=== PATIENT | female | born 1970 | race African-American/Black ===

== ENCOUNTER 2017-11-19 18:24 | Emergency (ER) | payer OTHER ==
[~2017-11-19] VITALS: Ht 160 cm; Wt 99.8 kg
[~2017-11-19 18:24] MED LIST: ADULT LOW DOSE81 MG PO; FLAGYL500 MG PO; HYDROCODONE-AP1 EAC6 PO; IBUPROFEN 800800 MG PO; NOHOMEMEDICATIONS; NORCO 5-325 TA1 EACH PO; SIMVASTATIN20 MG PO; VESICARE 5 MG TA5 M1 PO; ZOFRAN ODT4 MG PO
[2017-11-19] MEDS ORDERED: OXYBUTYNIN 5 MG5 M1 PO (18:32)
[2017-11-19] MEDS ORDERED: LIPITOR 20 MG T20 M1 PO (18:33)
[2017-11-19 19:22] LABS: ABSOLUTE BASOPHILS 0.1 thou/uL (0.0-0.2); ABSOLUTE EOSINOPHILS 0.2 thou/uL (0.0-0.7); ABSOLUTE LYMPHOCYTES 3.2 thou/uL (0.8-5.3); ABSOLUTE MONOCYTES 0.6 thou/uL (0.0-1.2); ABSOLUTE NEUTROPHILS 7.1 thou/uL (1.6-8.1); BASOPHILS 0.9 %; EOSINOPHILS 1.5 %; HEMATOCRIT 38.2 % (37.0-47.0); HEMOGLOBIN 13.1 gm/dL (12.0-15.0); LYMPHOCYTES 29.1 %; MCH 28.6 pg (26.0-34.0); MCHC 34.4 g/dL (28.0-37.0); MCV 83.2 fL (80.0-100.0); MONOCYTES 5.2 %; MPV 8.2 fl. (7.2-11.1); NUCLEATED RBCS 0 /100WBC; PLATELET COUNT* 335 thou/uL (150-400); POLYS 63.3 %; RBC 4.59 mil/uL (4.20-5.00); RDW-CV 14.2 % (10.5-14.5); WBC 11.1 thou/uL (4.0-11.0)
[2017-11-19 19:30] LABS: CALCIUM 9.4 mg/dL (8.5-10.1); CREATININE 0.7 mg/dL (0.6-1.3); POTASSIUM 3.8 mmol/L (3.5-5.1)
[2017-11-19 19:39] LABS: ALBUMIN 3.6 g/dL (3.4-5.0); TOTAL BILIRUBIN 0.9 mg/dL (<0.1-1.0); TOTAL PROTEIN 7.7 g/dL (6.4-8.2)
[2017-11-19] MEDS ORDERED: METFORMIN HCL500 MG PO (19:52)
[2017-11-19 20:35] LABS: URINE BILIRUBIN NEGATIVE (Negative); URINE BLOOD NEGATIVE (Negative); URINE CLARITY CLEAR; URINE COLOR YELLOW; URINE GLUCOSE-RANDOM NEGATIVE (Negative); URINE KETONES NEGATIVE (Negative); URINE LEUKOCYTES-REFLEX NEGATIVE (Negative); URINE NITRITE-REFLEX NEGATIVE (Negative); URINE PROTEIN TRACE (Negative); URINE SPECIFIC GRAVITY 1.015 (1.005-1.030); URINE UROBILINOGEN 0.2 E.U./dl (0.2-1.0)
[2017-11-19] MEDS ORDERED: OMEPRAZOLE 20 M20 M1 PO (20:53)
[2017-11-19 21:50] VITALS: BP 148/79
--- NOTE | 2017-11-20 12:02 | EKG ---
[place] [address] ELECTROCARDIOGRAM REPORT Name: TY DANIEL Room: [facility]#: [id number] Admission: 11/19/17 Attend Phys: Discharge: 11/19/17 Date of : 66 Report #: [id number] THIS REPORT FOR: //name// [facility] ED Test Date: 2017-11-19 Test Time: 19:20:28 Pat Name: TY DANIEL Department: Room: Gender: F Nurse Practitioner Hospitalist: KEELEY Esparza : 1970 Requested By: Juany Hubbard Order Number: [id number] MD: Giacomo Flaherty Measurements Intervals [place] Rate: 85 P: 66 UT: 148 QRS: 48 QRSD: 72 T: 22 QT: 342 QTc: 407 Interpretive Statements Sinus rhythm Borderline T wave abnormalities Baseline wander in lead(s) II,III,aVL,aVF Compared to ECG 04/26/2015 09:24:11 No significant changes Electronically Signed On 11-20-2017 12:02:13 STATISTICAL MACHINE MECHANIC by Giacomo Flaherty [email or web address] <ELECTRONICALLY SIGNED> By: Giacomo Flaherty MD, [facility] 11/20/17 1202 19 19 Giacomo Flaherty MD, [facility] /EPI
== END 2017-11-19 21:50 | disposition home or self-care (01) ==
LOC: M.ERS 18:24
PROVIDERS: Nurse Practitioner Family
DX: R10.13 Epigastric pain (principal); K21.9 Gastro-esophageal reflux disease without esophagitis; Z90.710 Acquired absence of both cervix and uterus; Z87.442 Personal history of urinary calculi; Z88.5 Allergy status to narcotic agent

== ENCOUNTER 2018-12-03 08:05 | Emergency (ER) | payer OTHER ==
[~2018-12-03] VITALS: Ht 160 cm; Wt 103.9 kg
[~2018-12-03 08:05] MED LIST changes: +LIPITOR 20 MG T20 M1 PO; +METFORMIN HCL500 MG PO; +OMEPRAZOLE 20 M20 M1 PO; +OXYBUTYNIN 5 MG5 M1 PO
[2018-12-03] MEDS ORDERED: ROSUVASTATIN CA20 MG PO (08:13)
[2018-12-03] MEDS ORDERED: ONDANSETRON HCL4 M2 PO (08:13)
[2018-12-03] MEDS ORDERED: COZAAR 25 MG TA25 M1 PO (08:13)
[2018-12-03 08:27] LABS: ABSOLUTE BASOPHILS 0.1 thou/uL (0.0-0.2); ABSOLUTE EOSINOPHILS 0.1 thou/uL (0.0-0.7); ABSOLUTE LYMPHOCYTES 2.4 thou/uL (0.8-5.3); ABSOLUTE MONOCYTES 0.7 thou/uL (0.0-1.2); ABSOLUTE NEUTROPHILS 5.2 thou/uL (1.6-8.1); BASOPHILS 1.1 %; EOSINOPHILS 1.4 %; HEMATOCRIT 36.3 % (37.0-47.0); HEMOGLOBIN 12.7 gm/dL (12.0-15.0); LYMPHOCYTES 28.6 %; MCH 28.8 pg (26.0-34.0); MCHC 35.1 g/dL (28.0-37.0); MCV 82.2 fL (80.0-100.0); MONOCYTES 8.1 %; MPV 8.5 fl. (7.2-11.1); NUCLEATED RBCS 0 /100WBC; PLATELET COUNT* 330 thou/uL (150-400); POLYS 60.8 %; RBC 4.41 mil/uL (4.20-5.00); RDW-CV 13.7 % (10.5-14.5); WBC 8.5 thou/uL (4.0-11.0)
[2018-12-03 08:40] LABS: APTT 25.1 Seconds (25.0-31.3); PROTIME 9.9 Seconds (9.20-11.50)
[2018-12-03 08:44] LABS: ANION GAP 7 mmol/L (7-16); BUN 12 mg/dL (7-18); CALCIUM 8.9 mg/dL (8.5-10.1); CHLORIDE 105 mmol/L (98-107); CO2 27 mmol/L (21-32); CREATININE 0.9 mg/dL (0.6-1.3); GLUCOSE 135 mg/dL (70-99); SODIUM 139 mmol/L (136-145); TROPONIN-I LEVEL <0.06 ng/mL (<0.06)
[2018-12-03 08:50] LABS: ALBUMIN 3.6 g/dL (3.4-5.0); ALKALINE PHOSPHATASE 84 U/L (46-116); CK-MB MASS < 0.5 ng/mL (<0.5-3.6); LIPASE 223 U/L (73-393); MAGNESIUM 1.6 mg/dL (1.8-2.4); NT-PRO BRAIN NAT PEPTIDE 20 pg/mL (<300); SGOT 19 U/L (15-37); SGPT 41 U/L (30-65); TOTAL PROTEIN 7.4 g/dL (6.4-8.2)
[2018-12-03 09:08] VITALS: BP 141/76
--- NOTE | 2018-12-03 16:07 | EKG ---
[place] [address] ELECTROCARDIOGRAM REPORT Name: TY DANIEL Room: [facility]#: [id number] Admission: 12/03/18 Attend Phys: Discharge: 12/03/18 Date of : [birth year] Report #: [id number] THIS REPORT FOR: //name// [facility] ED Test Date: 2018-12-03 Test Time: 08:10:44 Pat Name: TY DANIEL Department: Room: Gender: F Director [employer]: : 1970 Requested By: Fuentes Scott Order Number: [id number] : Carlos Barrera Measurements Intervals [place] Rate: 91 P: 58 TX: 151 QRS: 17 QRSD: 70 T: 6 QT: 331 QTc: 408 Interpretive Statements Sinus rhythm Compared to ECG 11/19/2017 19:20:28 T-wave abnormality no longer present Electronically Signed On 12-03-2018 16:07:21 HEEL COMPRESSOR by Carlos Barrera [email or web address] <ELECTRONICALLY SIGNED> By: Carlos Barrera MD, [facility] 12/03/18 1607 0810 0810 Carlos Barrera MD, FACC /EPI
== END 2018-12-03 09:08 | disposition home or self-care (01) ==
LOC: M.ERS 08:05
PROVIDERS: Family Medicine
DX: R07.89 Other chest pain (principal); R11.2 Nausea with vomiting, unspecified; K21.9 Gastro-esophageal reflux disease without esophagitis; E11.9 Type 2 diabetes mellitus without complications; E78.5 Hyperlipidemia, unspecified; I10 Essential (primary) hypertension; Z88.6 Allergy status to analgesic agent; Z90.710 Acquired absence of both cervix and uterus; Z87.442 Personal history of urinary calculi

== ENCOUNTER 2019-12-12 13:35 | Inpatient (IN) | payer OTHER ==
[~2019-12-12] VITALS: Ht 160 cm; Wt 87.5 kg
[~2019-12-12 13:35] MED LIST changes: +COZAAR 25 MG TA25 M1 PO; +ONDANSETRON HCL4 M2 PO; +ROSUVASTATIN CA20 MG PO
[2019-12-12 13:54] VITALS: BP 134/74
[2019-12-12 14:30] LABS: URINE BILIRUBIN 1+ (Negative); URINE BLOOD TRACE (Negative); URINE CLARITY SL CLOUDY; URINE COLOR YELLOW; URINE GLUCOSE-RANDOM NEGATIVE (Negative); URINE KETONES 3+ (Negative); URINE LEUKOCYTES-REFLEX NEGATIVE (Negative); URINE NITRITE-REFLEX NEGATIVE (Negative); URINE PROTEIN TRACE (Negative); URINE SPECIFIC GRAVITY >= 1.030 (1.005-1.030); URINE UROBILINOGEN 0.2 E.U./dl (0.2-1.0)
[2019-12-12 14:36] LABS: SQUAMOUS 0-3 Few /LPF (0-3); URINE WBC-REFLEX 0-5 Rare /HPF (0-5)
[2019-12-12 14:37] LABS: BACTERIA-REFLEX 1-9 Few /HPF (None Seen); CALCIUM OXALATE >10 Many /LPF (None Seen); CASTS None Seen /LPF (None Seen); URINE RBC 0-2 Rare /HPF (0-2)
[2019-12-12 14:47] LABS: ABSOLUTE LYMPHOCYTES 1.3 thou/uL (0.8-5.3); ABSOLUTE MONOCYTES 0.6 thou/uL (0.0-1.2); ABSOLUTE NEUTROPHILS 6.3 thou/uL (1.6-8.1); BASOPHILS 0.4 %; EOSINOPHILS 0.1 %; HEMATOCRIT 31.2 % (37.0-47.0); HEMOGLOBIN 10.7 gm/dL (12.0-15.0); LYMPHOCYTES 15.7 %; MCH 27.2 pg (26.0-34.0); MCHC 34.2 g/dL (28.0-37.0); MCV 79.5 fL (80.0-100.0); MONOCYTES 7.6 %; NUCLEATED RBCS 0 /100WBC; PLATELET COUNT* 380 thou/uL (150-400); POLYS 76.2 %; RBC 3.93 mil/uL (4.20-5.00); RDW-CV 15.5 % (10.5-14.5); WBC 8.3 thou/uL (4.0-11.0)
[2019-12-12 14:59] LABS: CALCIUM 8.4 mg/dL (8.5-10.1); CREATININE 0.9 mg/dL (0.6-1.3); POTASSIUM 3.2 mmol/L (3.5-5.1)
[2019-12-12 15:03] LABS: ALBUMIN 3.3 g/dL (3.4-5.0); TOTAL BILIRUBIN 1.2 mg/dL (<0.1-1.0)
[2019-12-12 17:31] VITALS: BP 131/75
[2019-12-12 17:50] VITALS: BP 125/70
--- NOTE | 2019-12-12 18:54 | NUR ---
PATIENT ARRIVED TP UNIT AT APPROX 1735. ALERT AND ORIENTED X4. ADMISSION HISTORY AND ASSESSMENT COMPLETED AND CHARTED. VSS ON ROOM AIR. NO COMPLAINTS OF PAIN OR NAUSEA. FLUIDS STARTED AND INFUSING ORDERED. PATIENT UP AD MARCELLA. CALL LIGHT IN REACH. HOURLY ROUNDS. WILL CONTINUE WITH PLAN OF CARE.
[2019-12-12 20:50] VITALS: BP 137/88
--- NOTE | 2019-12-13 05:29 | NUR ---
PATIENT SLEPT THROUGH THE NIGHT. NO REPORTS OF ANY NAUSEA OR PAIN, SHE HAS BEEN NPO SINCE MIDNIGHT. FLUIDS RUNNING ALL NIGHT NS @ 100. URINE STRAINED. PLAN IS FOR UROLOGY TO DECIDE ON POSSIBLE STENT PLACEMENT OR D/C TO HOME. WILL CONINUE TO FOLLOW PLAN OF CARE.
[2019-12-13 10:15] VITALS: BP 118/72
[2019-12-13] MEDS ORDERED: FLOMAX0.4 MG PO (15:14)
[2019-12-13] MEDS ORDERED: NORCO 5-325 TA1 EAC1 PO (15:16)
[2019-12-13 15:18] VITALS: BP 118/72
[2019-12-13 15:35] VITALS: BP 118/72
--- NOTE | 2019-12-13 15:35 | NUR ---
PATIENT PLEASANT AND COOPERATIVE W/ ASSESS AND CARES. DISCHARGE INSTRUCTIONS REVIEWED. PATIENT STATES VERBALLY OF UNDERSTANDING. STATES THAT SHE IS FOLLOWING UP [facility]. SUPPLIES FOR COLLECTING AND STRAINING URINE AT HOME GIVEN TO PATIENT. PATIENT ALERT AND ORIENTED, DENIES PAIN/N/V. COPY OF INSTRUCTIONS AND ORIG SCRIPT FOR [place] GIVEN TO PATIENT. IV DISCONTINUED. PATIENT ESCORTED OFF UNIT PER PEDIS W/ BOTTOM BRUSHER PRESENT, STEADY GAIT. DENIES OTHER NURSING NEEDS. ~TJRN
== END 2019-12-13 15:35 | disposition home or self-care (01) | DRG 694 ==
LOC: M.ERS 13:35 → M.TBA-ER 16:00 → M.ORTHSURG 17:34
PROVIDERS: Family Medicine; ADMIT Family Medicine
DX: N13.2 Hydronephrosis with renal and ureteral calculous obstruction (principal); E87.6 Hypokalemia; I10 Essential (primary) hypertension; E78.5 Hyperlipidemia, unspecified; E66.01 Morbid (severe) obesity due to excess calories; K21.9 Gastro-esophageal reflux disease without esophagitis; Z68.34 Body mass index [BMI] 34.0-34.9, adult; Z79.899 Other long term (current) drug therapy; Z79.84 Long term (current) use of oral hypoglycemic drugs; Z98.84 Bariatric surgery status; Z88.5 Allergy status to narcotic agent; Z90.710 Acquired absence of both cervix and uterus; Z82.49 Family history of ischemic heart disease and other diseases of the circulatory system

== ENCOUNTER 2019-12-16 02:21 | Emergency (ER) | payer OTHER ==
[~2019-12-16] VITALS: Ht 160 cm; Wt 87.5 kg
[~2019-12-16 02:21] MED LIST changes: +FLOMAX0.4 MG PO; +NORCO 5-325 TA1 EAC1 PO
[2019-12-16 02:37] LABS: URINE BLOOD TRACE (Negative); URINE CLARITY CLEAR; URINE COLOR YELLOW; URINE GLUCOSE-RANDOM NEGATIVE (Negative); URINE KETONES 2+ (Negative); URINE LEUKOCYTES-REFLEX NEGATIVE (Negative); URINE NITRITE-REFLEX NEGATIVE (Negative); URINE PROTEIN 1+ (Negative); URINE SPECIFIC GRAVITY >= 1.030 (1.005-1.030); URINE UROBILINOGEN 0.2 E.U./dl (0.2-1.0)
[2019-12-16 02:46] LABS: ABSOLUTE BASOPHILS 0.1 thou/uL (0.0-0.2); ABSOLUTE EOSINOPHILS 0.1 thou/uL (0.0-0.7); ABSOLUTE LYMPHOCYTES 2.2 thou/uL (0.8-5.3); ABSOLUTE MONOCYTES 0.6 thou/uL (0.0-1.2); ABSOLUTE NEUTROPHILS 3.3 thou/uL (1.6-8.1); EOSINOPHILS 1.5 %; HEMATOCRIT 32.2 % (37.0-47.0); HEMOGLOBIN 11.1 gm/dL (12.0-15.0); LYMPHOCYTES 35.1 %; MCHC 34.5 g/dL (28.0-37.0); MCV 78.1 fL (80.0-100.0); MONOCYTES 9.2 %; MPV 8.3 fl. (7.2-11.1); NUCLEATED RBCS 0 /100WBC; PLATELET COUNT* 409 thou/uL (150-400); POLYS 53.2 %; RBC 4.12 mil/uL (4.20-5.00); RDW-CV 15.9 % (10.5-14.5); WBC 6.3 thou/uL (4.0-11.0)
[2019-12-16 02:47] LABS: URINE BILIRUBIN 1+ (Negative)
[2019-12-16 02:49] LABS: ICTOTEST (BILI CONFIRMATORY) Negative (Negative)
[2019-12-16 02:58] LABS: CREATININE 0.9 mg/dL (0.6-1.3); POTASSIUM 3.3 mmol/L (3.5-5.1)
[2019-12-16] MEDS ORDERED: OXYCODONE HCL 55 MG PO (04:22)
[2019-12-16 04:31] VITALS: BP 145/88
== END 2019-12-16 04:31 | disposition home or self-care (01) ==
LOC: M.ERS 02:21
PROVIDERS: Emergency Medicine
DX: N23 Unspecified renal colic (principal); R11.2 Nausea with vomiting, unspecified; K21.9 Gastro-esophageal reflux disease without esophagitis; E78.5 Hyperlipidemia, unspecified; Z90.710 Acquired absence of both cervix and uterus; Z87.442 Personal history of urinary calculi

== ENCOUNTER 2020-07-21 18:59 | Observation (INO) | payer OTHER ==
[~2020-07-21] VITALS: Ht 160 cm; Wt 67.1 kg
[~2020-07-21 18:59] MED LIST changes: +OXYCODONE HCL 55 MG PO
[2020-07-21 19:10] VITALS: BP 165/95
[2020-07-21] MEDS ORDERED: VITAMIN PATCH (19:25)
[2020-07-21 19:38] LABS: URINE BILIRUBIN NEGATIVE (Negative); URINE BLOOD NEGATIVE (Negative); URINE CLARITY CLEAR; URINE COLOR YELLOW; URINE GLUCOSE-RANDOM NEGATIVE (Negative); URINE LEUKOCYTES-REFLEX NEGATIVE (Negative); URINE NITRITE-REFLEX NEGATIVE (Negative); URINE PROTEIN NEGATIVE (Negative); URINE SPECIFIC GRAVITY 1.025 (1.005-1.030)
[2020-07-21 19:38] LABS: ABSOLUTE EOSINOPHILS 0.1 thou/uL (0.0-0.7); ABSOLUTE LYMPHOCYTES 1.2 thou/uL (0.8-5.3); ABSOLUTE MONOCYTES 0.8 thou/uL (0.0-1.2); ABSOLUTE NEUTROPHILS 8.6 thou/uL (1.6-8.1); BASOPHILS 0.4 %; EOSINOPHILS 0.5 %; HEMATOCRIT 33.9 % (37.0-47.0); HEMOGLOBIN 11.6 gm/dL (12.0-15.0); LYMPHOCYTES 11.4 %; MCH 27.8 pg (26.0-34.0); MCHC 34.4 g/dL (28.0-37.0); MCV 80.8 fL (80.0-100.0); MONOCYTES 7.5 %; MPV 7.9 fl. (7.2-11.1); NUCLEATED RBCS 0 /100WBC; PLATELET COUNT* 308 thou/uL (150-400); POLYS 80.2 %; RBC 4.19 mil/uL (4.20-5.00); RDW-CV 15.3 % (10.5-14.5); WBC 10.7 thou/uL (4.0-11.0)
[2020-07-21 19:40] LABS: URINE KETONES 3+ (Negative)
[2020-07-21 19:48] LABS: CALCIUM 8.8 mg/dL (8.5-10.1); CREATININE 0.7 mg/dL (0.6-1.3); POTASSIUM 3.3 mmol/L (3.5-5.1)
[2020-07-21 19:53] LABS: ALBUMIN 3.5 g/dL (3.4-5.0); TOTAL BILIRUBIN 1.8 mg/dL (<0.1-1.0); TOTAL PROTEIN 7.2 g/dL (6.4-8.2)
[2020-07-21 23:19] VITALS: BP 161/92
[2020-07-21 23:45] VITALS: BP 169/100
[2020-07-22 02:11] VITALS: BP 169/100
--- NOTE | 2020-07-22 04:28 | NUR ---
PT ARRIVED TO THE UNIT AT 2325. A&O X 4, ON RA. MEDS GIVEN ORDERED. PAIN MANAGED WITH FENTANYL. UP INDEPENDENTLY IN ROOM. IVF INFUISING. NPO FOR SURGERY THIS MORNING. WILL CONTINUE TO MONITOR.
[2020-07-22 08:00] VITALS: BP 145/93
[2020-07-22 11:12] VITALS: BP 145/93
--- NOTE | 2020-07-22 14:36 | NUR ---
PATIENT DISCHARGED FROM UNIT AT 1430. ALERT AND ORIENTED X 4. VITAL SIGNS STABLE ON ROOM AIR. UP INDEPENDENTLY IN ROOM. TOLERATING REGULAR DIET. VOIDING WITH NO ISSUES POST SURGERY. LAP SITES TO ABDOMEN CLEAN/DRY/INTACT. DENIES PAIN AND NAUSEA AT THIS TIME. DISCHARGE INSTRUCTIONS, MEDICATION INFORMATION, AND SCRIPT GIVEN TO PATIENT. LEFT WITH ALL BELONGINGS. PATIENT LEFT WITH DAUGHTER VIA CAR.
[2020-07-22 14:50] VITALS: BP 145/93
--- NOTE | 2020-07-22 15:11 | EKG ---
[place] [address] ELECTROCARDIOGRAM REPORT Name: TY DANIEL Room: [address]#: [id number] Admission: 07/21/20 Attend Phys: Jade Levy, Discharge: 07/22/20 Date of : 66 Date of Service: 07/21/201939 Report #: [id number] THIS REPORT FOR: //name// [facility] ED Test Date: 2020-07-21 Test Time: 19:40:04 Pat Name: TY DANIEL Department: Room: [facility] Gender: F Product Technician: CT : 1970 Requested By: Fuentes Scott Order Number: [id number] MD: Carlos Barrera Measurements Intervals [place] Rate: 86 P: 58 VT: 152 QRS: 14 QRSD: 84 T: 20 QT: 347 QTc: 415 Interpretive Statements Sinus rhythm Borderline T wave abnormalities Baseline wander in lead(s) V5 Compared to ECG 12/03/2018 08:10:44 T-wave abnormality now present Electronically Signed On 07-22-2020 15:11:10 CDT by [email or web address] Barrera [email or web address] <ELECTRONICALLY SIGNED> By: Carlos Barrera MD, FACC 07/22/20 151 39 39 Carlos Barrera MD, FAC /EPI
--- NOTE | 2020-07-25 18:06 | PATH ---
[address] [address] PATHOLOGY RPT PROCEDURE Name: TY DANIEL Room: [address] Char Delgadillo#: [id number] Admission: 07/21/20 Date of : [birth year] Discharge: 07/22/20 Report #: [id number] Path Case #: [id number] [facility] Accession Number: [id number] . 01 Material submitted: . appendix - APPENDIX . 01 Clinician provided ICD-10: K35.30 . 01 Clinical history: . APPENDICITIS . 02 Diagnosis: Appendix: - Acute appendicitis, periappendicitis and serositis. ([facility]; 07/25/2020) [facility] 07/25/2020 1543 Local . 02 Electronically signed: . Jordan Arreola MD, Pathologist NPI- [id number] . 01 Gross description: . Received in formalin labeled "Daniel, Ty, appendix" is an appendectomy specimen measuring 5.7 cm in length and 1.3 cm in diameter. There is an attached portion of mesoappendix measuring 2.0 x 0.6 x 0.6 cm. The proximal margin is closed with a staple line. The serosa is billingsley-white with extensive purulent exudate. The specimen is sectioned to reveal a dilated hemorrhagic lumen measuring up to 0.7 cm in diameter. No perforations are identified. The lumen contains a compacted hemorrhagic fecal material. Hot [place] Worker sections are submitted in cassette A1, with the proximal margin inked black. ([facility] [place]; 07/24/2020) [facility] 07/24/2020 0922 Local . 02 Pathologist provided ICD-10: K35.80, K65.8 . 02 CPT . 084260 Specimen Comment: A courtesy copy of this report has been sent to [phone] Specimen Comment: [phone] Specimen Comment: Report sent to / DR LOPEZ Performed at: [address], [place] [id number] MD Kirk Samuels MD Phone: [phone] [place] [address] PATHOLOGY RPT PROCEDURE Name: TY DANIEL Room: [address] Char Delgadillo#: [id number] Admission: 07/21/20 Date of : [birth year] Discharge: 07/22/20 Report #: [id number] Path Case #: [id number] Performed at: 02 [facility] Slick Lemons [address] Lencho Donnelly, TIMOTHY Botello [id number] MD Jordan Arreola MD Phone: [phone]
--- NOTE | 2020-07-27 09:03 | OP ---
[address] [address] OPERATIVE REPORT Name: TY DANIEL Room: [address] Char Delgadillo#: [id number] Admission: 07/21/20 Attend Phys: Jade Levy DO Discharge: 07/22/20 Date of : [birth year] Report #: [id number] THIS REPORT FOR: //name// cc: Marcella Tadeo Tara DO ~ CC: Jade Tadeo DATE OF SERVICE: 07/22/2020 PREPROCEDURE DIAGNOSIS: Acute appendicitis with localized peritonitis. POSTOPERATIVE DIAGNOSIS: Acute appendicitis with localized peritonitis. FINDINGS: An acutely inflamed appendix, which was retrocecal in location and in the right upper quadrant. SURGEON: Jade Levy DO CO-SURGEON: Ming Lora DO, PGY-1. GATE KEEPER: CALIN Jin. OPERATION PERFORMED: Laparoscopic appendectomy. ANESTHESIA: General endotracheal and local. ESTIMATED BLOOD LOSS: 3. DRAINS: None. SPECIMENS: Appendix. COMPLICATIONS: None. CONDITION: Stable. DISPOSITION: PACU to the floor. HISTORY OF PRESENT ILLNESS: The patient is a very pleasant 49-year-old female who presented to the ER last night with complaint of acute onset right lower quadrant abdominal pain. Lab work was all within normal limits. CT scan did reveal acute retrocecal appendicitis. The patient was then consented for laparoscopic appendectomy. Risks discussed included bleeding, infection, pain, scar formation, injury to bowel or bladder, hernia at the incision sites, need for an open procedure and risks of general anesthesia. [place] [address] OPERATIVE REPORT Name: DANIELTY Sherman Room: [address] Char Delgadillo#: [id number] Admission: 07/21/20 Attend Phys: Jade Levy DO Discharge: 07/22/20 Date of : 66 Report #: [id number] these risks and elected to proceed. DESCRIPTION OF PROCEDURE: The patient was brought to the operating room. She was laid supine on the operating room table. SCDs were placed on bilateral lower extremities. Ancef was given in the perioperative period. General endotracheal anesthesia was induced by Anesthesia without difficulty. Abdomen was prepped and draped in standard sterile fashion. Timeout was performed to verify patient and procedure. A 10 mL of 0.5% Marcaine were injected in the infraumbilical area. Curvilinear infraumbilical incision was made with an 11-blade. Cautery was used for hemostasis. S retractors were used to visualize fascia. Fascia was grasped and elevated between 2 Kochers. Fascia was incised using cautery. Peritoneum was bluntly entered using a Nikki clamp. Finger was introduced into the abdomen to assure that there were no payton-incisional adhesions, none were identified. Two stitches of 0 Vicryl placed on the fascia. Parveen trocar was introduced and secured with 0 Vicryl stitches. Abdomen was insufflated. The patient was placed head down and tilted left side down. Camera was introduced and a brief anterior abdominal exploration was undertaken with no significant findings. Of note, the patient did not have any intraabdominal adhesions from her recent gastric bypass surgery. Two 5 mm trocars were then introduced. One in the left lower quadrant, one in the suprapubic area, both under direct visualization. We then turned our attention to the right side of the abdomen. The cecum was identified almost all the way up into the right upper quadrant. The appendix was then identified in a retrocecal position. It was acutely inflamed and there was some purulent fluid along the right gutter. The cecum was rolled to the midline. Cautery was then used to incise the peritoneum overlying the appendix. Appendix was then able to be elevated to the anterior abdominal wall and the base was clearly visualized. [place] dissector was used to create a window at the base of the appendix. A 45 mm purple load Endo-FAM stapler was introduced and the base of the appendix was clamped and stapled without difficulty. Mesentery was then also taken using a single load of a 45 mm purple load Endo-FAM stapler. Specimen was placed within an EndoCatch bag. Staple lines were inspected. There was one small area of bleeding, which was easily controlled with cautery. Any of the remaining purulent fluid was then suctioned away from the right side of the abdomen and the pelvis. Attention was returned to the staple lines and they appeared to be hemostatic. The patient was then returned to supine. Any remaining fluid in the pelvis was suctioned away. Trocars were removed under direct visualization. There was no bleeding noted from the peritoneum. Abdomen was then completely desufflated. Parveen trocar was removed and EndoCatch bag was removed with specimen intact. It was handed off for permanent pathology. Kochers were placed on the fascia of the infraumbilical port. Previously placed 0 Vicryl stitches were removed and a 0 Vicryl stitch was placed in maqzjf-bp-ayhas fashion with excellent approximation of the fascia. An additional 10 mL of 0.5% Marcaine were injected fascia. All wounds were then closed with 4-0 Monocryl. A total of 30 mL of 0.5% Marcaine were used to anesthetize the wounds. Wounds were cleansed and covered with Mastisol, Steri-Strips, 4 x 4's, and [place] [address] OPERATIVE REPORT Name: TY DANIEL Room: [address] Char Delgadillo#: [id number] Admission: 07/21/20 Attend Phys: Jade Levy DO Discharge: 07/22/20 Date of : [birth year] Report #: [id number] The patient was then allowed to awaken, was extubated and transported to the recovery room with no further difficulties. Counts were correct x 2 at the conclusion of the case. <ELECTRONICALLY SIGNED> By: Jade Levy DO 07/27/20 0903 0716 0727Chlatrice Levy DO /nt
== END 2020-07-22 14:30 | disposition home or self-care (01) ==
LOC: M.ERS 18:59 → M.TBA-ER 22:28 → M.ORTHSURG 22:28
PROVIDERS: Family Medicine; ADMIT Surgery; ATTEND Surgery
DX: K35.30 Acute appendicitis with localized peritonitis, without perforation or gangrene (principal); E78.5 Hyperlipidemia, unspecified; Z98.84 Bariatric surgery status; Z79.899 Other long term (current) drug therapy

== ENCOUNTER 2021-04-10 07:30 | Emergency (ER) | payer OTHER ==
[~2021-04-10] VITALS: Ht 160 cm; Wt 70.3 kg
[~2021-04-10 07:30] MED LIST changes: +VITAMIN PATCH
[2021-04-10 08:24] LABS: ABSOLUTE EOSINOPHILS 0.1 thou/uL (0.0-0.7); ABSOLUTE LYMPHOCYTES 1.7 thou/uL (0.8-5.3); ABSOLUTE MONOCYTES 0.4 thou/uL (0.0-1.2); ABSOLUTE NEUTROPHILS 2.7 thou/uL (1.6-8.1); BASOPHILS 0.8 %; EOSINOPHILS 1.6 %; HEMATOCRIT 32.3 % (37.0-47.0); HEMOGLOBIN 11.2 gm/dL (12.0-15.0); MCHC 34.7 g/dL (28.0-37.0); MCV 77.9 fL (80.0-100.0); MONOCYTES 8.5 %; MPV 7.9 fl. (7.2-11.1); NUCLEATED RBCS 0 /100WBC; PLATELET COUNT* 326 thou/uL (150-400); POLYS 55.1 %; RBC 4.14 mil/uL (4.20-5.00); WBC 4.9 thou/uL (4.0-11.0)
[2021-04-10 08:31] LABS: URINE BILIRUBIN NEGATIVE (Negative); URINE BLOOD NEGATIVE (Negative); URINE CLARITY CLEAR; URINE COLOR YELLOW; URINE GLUCOSE-RANDOM NEGATIVE (Negative); URINE KETONES NEGATIVE (Negative); URINE LEUKOCYTES-REFLEX NEGATIVE (Negative); URINE NITRITE-REFLEX NEGATIVE (Negative); URINE PROTEIN NEGATIVE (Negative); URINE SPECIFIC GRAVITY >= 1.030 (1.005-1.030)
[2021-04-10 08:34] LABS: CALCIUM 8.3 mg/dL (8.5-10.1); CREATININE 0.6 mg/dL (0.6-1.3); POTASSIUM 3.9 mmol/L (3.5-5.1)
[2021-04-10 08:39] LABS: ALBUMIN 3.4 g/dL (3.4-5.0); TOTAL BILIRUBIN 1.7 mg/dL (<0.1-1.0); TOTAL PROTEIN 7.1 g/dL (6.4-8.2)
[2021-04-10] MEDS ORDERED: HYDROCODON-ACE1 EAC7 PO (09:46)
[2021-04-10] MEDS ORDERED: ZOFRAN ODT4 MG DISSOLVE (09:46)
[2021-04-10 10:14] VITALS: BP 121/85
--- NOTE | 2021-04-10 14:41 | EKG ---
[place] [address] ELECTROCARDIOGRAM REPORT Name: TY DANIEL Room: [facility]#: [id number] Admission: 04/10/21 Attend Phys: Discharge: 04/10/21 Date of : 66 Date of Service: 04/10/21823 Report #: [id number] THIS REPORT FOR: //name// [facility] ED Test Date: 2021-04-10 Test Time: 08:24:55 Pat Name: TY DANIEL Department: Room: Gender: Rn Cardiac Rehab: HARISH : 1970 Requested By: Mychal Madsen Order Number: [id number] MD: Carlos Barrera Measurements Intervals [place] Rate: 65 P: 62 VT: 174 QRS: 20 QRSD: 81 T: 14 QT: 390 QTc: 406 Interpretive Statements Sinus rhythm Compared to ECG 07/21/2020 19:40:04 T-wave abnormality no longer present Electronically Signed On 04-10-2021 14:41:18 CDT by Carlos Barrera [email or web address] <ELECTRONICALLY SIGNED> By: Carlos Barrera MD, [facility] 04/10/21 1441 3 3 Carlos Barrera MD, [facility] /EPI
== END 2021-04-10 10:17 | disposition home or self-care (01) ==
LOC: M.ERS 07:30
PROVIDERS: Emergency Medicine Emergency Medical Services
DX: R10.31 Right lower quadrant pain (principal); K21.9 Gastro-esophageal reflux disease without esophagitis; E78.5 Hyperlipidemia, unspecified; Z90.49 Acquired absence of other specified parts of digestive tract; Z90.710 Acquired absence of both cervix and uterus; Z87.442 Personal history of urinary calculi; Z88.5 Allergy status to narcotic agent